=== PATIENT | male | born 1985 | race Caucasian/White ===

== ENCOUNTER 2017-12-10 10:20 | Day surgery (SDC) | payer OTHER ==
[2017-12-10 11:04] VITALS: TEMP 98.3
[2017-12-10] MEDS ORDERED: Lidocaine Hydrochloride 5 ML INJ ONE (13:05)
[2017-12-10] MEDS ORDERED: Propofol 10 mg/ml Inj (20 ML) ONE (13:05)
[2017-12-10] MEDS ORDERED: Midazolam 2 MG/2 ML VIAL ONE (13:17)
[2017-12-10 15:07] VITALS: O2SAT 100
[2017-12-10 15:17] VITALS: BP 106/74; PULSE 73; RESP 16
== END 2017-12-10 15:00 | disposition home or self-care (01) ==
LOC: C.ENDO 10:20
PROVIDERS: ATTEND Internal Medicine Gastroenterology
DX: R10.13 Epigastric pain (principal); L29.0 Pruritus ani; R19.4 Change in bowel habit; K57.30 Diverticulosis of large intestine without perforation or abscess without bleeding; K64.8 Other hemorrhoids; K25.9 Gastric ulcer, unspecified as acute or chronic, without hemorrhage or perforation; K31.9 Disease of stomach and duodenum, unspecified
CPT/HCPCS: 43239; 45378; 88305; J2250; J2704; J3010